=== PATIENT | male | born 1970 | race Caucasian/White ===

== ENCOUNTER → 2017-11-26 14:49 | Outpatient (CLI) | payer OTHER, MEDICAID, SELFPAY ==
[2017-11-27 11:17] VITALS: BMI 46.7
== END ==
PROVIDERS: Family Provider Internal Medicine; PCP Internal Medicine; Visit Provider Student in an Organized Health Care Education/Training Program
DX: E66.9 Obesity, unspecified (principal); Z68.42 Body mass index [BMI] 45.0-49.9, adult
CPT/HCPCS: 97802

== ENCOUNTER → 2018-01-07 11:53 | Outpatient (CLI) | payer OTHER, MEDICAID, SELFPAY ==
[2018-01-07 15:31] LABS: Hepatitis B Surface Antigen NEGATIVE s/c (NEGATIVE)
[2018-01-07 15:46] LABS: HIV 1 and 2 Antibody NEGATIVE (NEGATIVE); Hep C Virus Ab w/Reflex Quant NEGATIVE s/c (NEGATIVE)
[2018-01-08 15:18] LABS: Hepatitis B Core Antibody Nonreactive (Nonreactive)
[2018-01-09 07:16] LABS: Hepatitis B Surf AB Imm QUANT < 5 mIU/mL (> 9)
== END ==
PROVIDERS: Family Provider Internal Medicine; PCP Internal Medicine; Visit Provider Internal Medicine
DX: Z11.4 Encounter for screening for human immunodeficiency virus [HIV] (principal)
CPT/HCPCS: 36415; 86317; 86703; 86704; 86706; 86803; 87340

== ENCOUNTER → 2018-03-05 13:40 | Outpatient (CLI) | payer OTHER, MEDICAID, SELFPAY ==
--- NOTE | 2018-03-05 15:05 | DIET.PN ---
Met for f/u consultation for wt control. Has missed several appointments - forgets, and the reminder call the day of does no good because works nights. Does not write appts down on calendar, but states he's working on being more organized and accountable- plans to use phone calendar. Is no longer going to gym as his workouts aggravate arthritis in back and has to take few days to recover. Is now only walking, but doing this every day for 30-40 min DX: extreme obesity WT; 283# down from 290# initial visit in december Initial Wt Goal: 278-280# Half-Way Goal: 185-190# CURRENT INTAKE: Eating lot of entree salads. Hasn't really used healthy plate model for portioning because eats a lot of salads. With more inquiry, does have a meal at girlfriends 4 times/week - preps a lot of pasta (low income). Tries to eat small portion when there and eats a salad before going over. ASSESSMENT: Has made some good changes in food intake, but not consistently. Would benefit from implementing portion control when at girlfriends house. Has lost approx 7# since first consult 3 mo ago; could probably lose faster with better compliance INTERVENTION: Reviewed healthy plate model and encouraged to use. Encouraged to continue entree salads and daily walking. Pt not willing to keep food record Will F/U in 1 month
== END ==
PROVIDERS: Family Provider Internal Medicine; PCP Internal Medicine; Visit Provider Student in an Organized Health Care Education/Training Program
DX: E66.9 Obesity, unspecified (principal)
CPT/HCPCS: 97803

== ENCOUNTER → 2018-04-02 13:48 | Outpatient (CLI) | payer OTHER, MEDICAID, SELFPAY ==
--- NOTE | 2018-04-02 15:59 | DIET.PN ---
Met for 3rd f/u States I didn't keep records, but I plan to start using a phone nelida to track diet intake. Is not longer walking as his feet hurt too much. Considering pool exercise; needs to check schedule and cost. Continues to eat a lot of entree salads, but has also tried more variety of preparing meals - roasted chicken with cooked veggies for example. Girlfriend diagnosed with diverticular dz so she has been eating healthier meals which are more appropriate for pt. DX: obesity WT: 283# same as last visit (03/05) ASSESSMENT: Many set-backs, expecially to exercise. Has made many good changes in type of food eaten. Needs now to control quantity better and increase exercise. PLAN/GOAL: track intake w/phone nelida - aim for approx 1800 kcals daily Try pool exercise F/U 1 mo
== END ==
PROVIDERS: Family Provider Internal Medicine; PCP Internal Medicine; Visit Provider Student in an Organized Health Care Education/Training Program
DX: E66.9 Obesity, unspecified (principal)
CPT/HCPCS: 97803

== ENCOUNTER → 2020-02-28 17:19 | Outpatient (CLI) | payer OTHER, MEDICAID, SELFPAY | PROVIDERS: Family Provider Internal Medicine; PCP Internal Medicine; Referring Provider Physician Assistant; Visit Provider Physician Assistant | DX: E66.9 Obesity, unspecified (principal); I10 Essential (primary) hypertension; E78.1 Pure hyperglyceridemia; J20.9 Acute bronchitis, unspecified; M72.2 Plantar fascial fibromatosis; F32.9 Major depressive disorder, single episode, unspecified; M54.5 Low back pain; N52.9 Male erectile dysfunction, unspecified; N49.2 Inflammatory disorders of scrotum; E78.2 Mixed hyperlipidemia; M76.62 Achilles tendinitis, left leg ==

== ENCOUNTER → 2020-03-01 15:44 | Outpatient (CLI) | payer OTHER, SELFPAY ==
[2020-03-01 16:44] LABS: Add Manual Diff / Slide Review NO; Basophils Absolute Auto 100 /uL (0-100); Basophils Percent Auto 1.2 % (0-2); Eosinophils Absolute Auto 100 /uL (0-450); Eosinophils Percent Auto 1.1 % (2-4); Hematocrit 40.9 % (41-53); Lymphocytes Absolute Auto 1900 /uL (1100-4500); Lymphocytes Percent Auto 29.7 % (25-40); Mean Corpuscular HGB Conc 34.3 % (30-36); Mean Corpuscular Hemoglobin 30.4 PG (26-34); Mean Corpuscular Volume 88.6 fL (80-100); Monocytes Absolute Auto 700 /uL (0-900); Monocytes Percent Auto 10.1 % (3-14); Neutrophils Absolute Auto 3700 /uL (1500-7000); Neutrophils Percent Auto 57.9 % (50-75); Platelet Count 230 X10^3/uL (150-400); Red Blood Cell Count 4.62 X10^6/uL (4.5-5.9); Red Cell Distribution Width 12.9 % (11.6-14.8); White Blood Cell Count 6.5 X10^3/uL (4.5-11.0)
[2020-03-01 16:46] LABS: Hemoglobin A1C% w Est Avg Glu 5.4 % (4.0-6.0)
[2020-03-01 17:12] LABS: Alanine Aminotransferase 40 IU/L (<50); Albumin 4.4 g/dL (3.5-5.0); Albumin Globulin Ratio 1.5 (1.0-2.8); Alkaline Phosphatase 87 U/L (38-126); Aspartate Aminotransferase 34 IU/L (17-59); BUN Creatinine Ratio 26.2 (6-22); Bilirubin Total 0.6 mg/dL (0.2-1.3); Blood Urea Nitrogen 16 mg/dL (9-20); Calcium 9.6 mg/dL (8.4-10.2); Carbon Dioxide 24 mmol/L (22-32); Chloride 103 mmol/L (98-107); Cholesterol 231 mg/dL (140-199); Estimated Glomerular Filt Rate > 60.0 mL/min (>60); Globulin 2.9 g/dL (1.7-4.1); Glucose 89 mg/dL (70-100); HDL Cholesterol 39 mg/dL (40-60); HEMOLYSIS < 15 (0-50); Magnesium 2.1 mg/dL (1.6-2.3); Potassium 4.2 mmol/L (3.4-5.1); Sodium 137 mmol/L (137-145); Total Protein 7.3 g/dL (6.3-8.2)
[2020-03-01 17:24] LABS: Triglycerides 603 mg/dL (35-150)
[2020-03-02 07:09] LABS: Parathyroid Hormone Int 48 pg/mL (15-65)
[2020-03-04 00:50] LABS: Metanephrine,Plasma 18.9 pg/mL (0.0-88.0); Normetanephrine Total 444 ug/24 hr (156-729); Urine, Metanephrine 24 ug/L (Undefined); Urine, Normetanephrine 153 ug/L (Undefined)
[2020-03-04 19:09] LABS: Dopamine, Ur 24hr 508 ug/24 hr (0-510); Epinephrine, U 24hr 6 ug/24 hr (0-20); Norepinephrine Ur 24hr 90 ug/24 hr (0-135)
== END ==
PROVIDERS: Family Provider Internal Medicine; PCP Internal Medicine; Referring Provider Physician Assistant; Visit Provider Physician Assistant
DX: R42 Dizziness and giddiness (principal); R00.2 Palpitations; I10 Essential (primary) hypertension; E78.2 Mixed hyperlipidemia
CPT/HCPCS: 36415; 80053; 80061; 82384; 83036; 83735; 83835; 83970; 85025